=== PATIENT | female | born 1975 | race Two or more races ===

== ENCOUNTER 2024-06-07 19:18 | Emergency (ER) | payer MEDICAID, SELFPAY ==
[2024-06-07 20:20] VITALS: BP 151/86; PULSE 56; RESP 18; TEMP 36.8; O2SAT 99; BMI 29.5
[2024-06-07 20:31] VITALS: PULSE 62
--- NOTE | 2024-06-07 20:48 | XR_ITS ---
Examination: PA chest single view Technique: Upright PA chest single view Exam date and time: June 07, 2024 2101 hrs. Indications: Onset chest pain today. Findings: Early pneumonia right base Normal heart size No pulmonary edema Intact osseous structures Impression: Early pneumonia right base
--- NOTE | 2024-06-07 20:49 | EDRME_ITS ---
Rapid Medical Screening Exam [facility] Arrival date/time: 06/07/24 19:18 48F with no significant PMH presents to ED with epigastric pain that radiates up to chest/throat, as well as some N/V. Chief Complaint: Abdominal Pain Vital signs: Vital Signs Temperature 98.2 F 06/07/24 20:20 Pulse Rate 56 L 06/07/24 20:20 Respiratory Rate 18 06/07/24 20:20 Blood Pressure 151/86 H 06/07/24 20:20 Pulse Oximetry (%) 99 06/07/24 20:20 Oxygen Delivery Method Room Air 06/07/24 20:20
[2024-06-07] MEDS: MG HYD/AL HYD/SIME (Maalox Reg) SUSP 30 ML UDC PO (21:13)
[2024-06-07] MEDS: FAMOTIDINE 20 MG TABLET 40 MG PO (21:13)
[2024-06-07 21:43] LABS: Basophils % (Auto) 0 % (0-2.5); Eosinophils # (Auto) 0.1 Thou/mm3 (0.0-0.5); Eosinophils % (Auto) 1 % (0-10); Hematocrit 33.9 % (36.0-46.0); Hemoglobin 10.5 g/dL (12.0-16.0); Immature Granulocytes % (Auto) 0 % (0-0); Immature Granulocytes Auto 0.04 Thou/mm3 (0.00-0.00); Lymphocytes # (Auto) 1.7 Thou/mm3 (1.0-4.8); Lymphocytes % (Auto) 14 % (10-50); Mean Corpuscular Hemoglobin 24.2 pg (25.0-35.0); Mean Corpuscular Volume 78 fL (80-100); Monocytes # (Auto) 0.8 Thou/mm3 (0.0-0.8); Monocytes % (Auto) 6 % (0-12); Neutrophils # (Auto) 9.4 Thou/mm3 (1.8-7.7); Neutrophils % (Auto) 78 % (37-80); Nucleated Red Blood Cell % 0 /100 WBC (0); Platelet Count 296 Thou/mm3 (140-440); RDW Standard Deviation 50.1 fL (36.4-46.3); Red Blood Count 4.33 Miln/mm3 (4.00-5.20); White Blood Count 12.1 Thou/mm3 (3.6-11.0)
[2024-06-07 22:03] LABS: Alanine Aminotransferase 168 U/L (10-49); Albumin, Serum 4.8 gm/dL (3.5-5.0); Albumin/Globulin Ratio 1.3 (1.2-2.2); Alkaline Phosphatase 173 U/L (46-116); Anion Gap 5 (7-16); Aspartate Amino Transferase 246 U/L (0-34); BUN/Creatinine Ratio 15 Ratio (12-20); Bilirubin,Total 0.9 mg/dL (0.3-1.2); Blood Urea Nitrogen 18 mg/dL (9-23); Calcium 9.9 mg/dL (8.3-10.6); Calcium (Corrected) 9.9 mg/dL (8.5-10.1); Carbon Dioxide 26.2 mMol/L (20.0-31.0); Chloride 104 mMol/L (98-107); Creatinine (Component) 1.2 mg/dL (0.6-1.3); Globulin 3.6 gm/dL (2.3-3.5); Glucose 99 mg/dL (74-106); Lipase 47 U/L (12-53); Osmolality,Calculated 272 (275-295); Potassium 4.6 mMol/L (3.4-5.1); Sodium 135 mMol/L (136-145); Total Protein 8.4 gm/dL (5.7-8.2); Troponin I < 0.020 ng/mL (0.0-0.045); eGFR 55 See Note
--- NOTE | 2024-06-07 22:10 | XR_ITS ---
Examination: Abdomen sonogram, Limited Date and time of exam: June 07, 2024 1035 hrs. Indications: Upper abdominal pain beginning 3 hours ago Technique: Real-time ma scale transabdominal sonographic images of the upper abdomen obtained. Findings: Multiple gallstones Gallbladder sludge Gallbladder wall 0.2 cm Common bile duct 0.6 cm Pancreatic head 3.1 cm Liver 14.4 cm no liver lesions Normal hepatopedal portal venous flow Patent IVC Impression: Cholelithiasis, negative for cholecystitis No common bile duct stones noted
[2024-06-07 23:17] VITALS: BP 122/99; PULSE 65; RESP 16; TEMP 36.8; O2SAT 97
--- NOTE | 2024-06-08 00:07 | PD.EDABDPN ---
ED Abdominal Pain RME/HPI General Chief Complaint: Abdominal Pain Stated complaint: UPPER ABD PAIN Arrival date/time: 06/07/24 19:18 Limitations: no limitations RME / HPI RME / HPI narrative: 06/07/24 19:18 48F with no significant PMH presents to ED with epigastric pain that radiates up to chest/throat, as well as some N/V. ---- Dr. Gooden's Main ED Evaluation: 48yo female with no significant past medical history presents to the ED for a chief complaint of aching epigastric pain x 1800. Patient states she last ate at 1630, reporting she developed epigastris pain at 1800. She denies any N/V, fever, chills or any other associated symptoms. Denies any history of similar symptoms. No known allergies. Related Data Allergies Allergy/AdvReac Type Severity Reaction Status Date / Time No Known Allergies Allergy Verified 06/07/24 19:21 Review of Systems Review of Systems Systems Reviewed: All systems reviewed, normal except as documented Past Medical History Past Medical History CARDIAC: Negative Congestive Heart Failure RESPIRATORY: Negative Chronic Obstructive Pulmonary Disease (COPD) GENITOURINARY: Negative Renal Disease ENDOCRINE: Negative Diabetes Mellitus Type 1 or Diabetes Mellitus Type 2 Social History SMOKING STATUS: Never smoker ED Exam General Limitations: Present no limitations General appearance: Present alert and in no apparent distress Head Head exam: Present atraumatic Eye Eye exam: Present normal appearance, PERRL and EOMI ENT ENT exam: Present normal exam, normal oropharynx and mucous membranes moist Neck Neck exam: Present normal inspection, full ROM and trachea midline Chest Chest inspection: Present normal inspection and symmetric chest wall rise Respiratory Respiratory exam: Present normal lung sounds bilaterally Cardiovascular Cardiovascular exam: Present regular rate, normal rhythm and normal heart sounds Abdominal Exam Abdominal exam: Present soft and normal bowel sounds; Absent tenderness or Canada's sign Extremities Exam Extremities exam: Present normal inspection and full ROM Back Exam Back exam: Present normal inspection and full ROM Neurological Exam Neurological exam: Present alert, oriented X3 and CN II-XII intact Psychiatric Psychiatric exam: Present normal affect and normal mood Skin Skin exam: Present warm, dry, intact and normal color Course Course Course Narrative: Patient has remained clinically stable within the ED. Discussed with the patient at bedside, and she feels comfortable going home. Return precautions given. Quality Measures none Orders Category Date Time Status EKG (ED ONLY) *Do not use* NOW Care 06/07/24 20:49 Completed EKG (ED Only) Stat Exams 06/07/24 20:48 Ordered US gall bladder Stat Exams 06/07/24 22:10 Completed XR chest 1V portable Stat Exams 06/07/24 20:48 Completed CBC Stat Lab 06/07/24 20:55 Completed CMP [Comprehensive Metabolic Panel] Stat Lab 06/07/24 20:55 Completed Lipase Stat Lab 06/07/24 20:55 Completed Troponin I Stat Lab 06/07/24 20:55 Completed Famotidine [Pepcid] Med 06/07/24 20:48 Discontinued 40 mg PO X1 ONE mg Hyd/Al Hyd/Sofia Susp [Maalox Susp] Med 06/07/24 20:48 Discontinued 30 ml PO X1 ONE Vital Signs Vital signs: Vital Signs Temperature 98.2 F 06/07/24 20:20 Pulse Rate 56 L 06/07/24 20:20 Respiratory Rate 18 06/07/24 20:20 Blood Pressure 151/86 H 06/07/24 20:20 Pulse Oximetry (%) 99 06/07/24 20:20 Oxygen Delivery Method Room Air 06/07/24 20:20 Pulse ox is 99% on room air, which is normal according to my interpretation. Abdominal Pain MDM Patient data External records reviewed:: [facility] previous records (Per chart review, patient has no previous ED visits or admissions to this facility.) Clinical information provided by:: patient Social determinants that could affect healthcare access:: none Patient has the following chronic illnesses:: none How is presenting disease/condition affected by chronic disease/condition?: no chronic disease Evaluation data The following diagnostics were reviewed and interpreted by me:: lab results and radiology exam(s) Lab and/or radiology exams considered but not ordered:: none Interpretation Summary: WBC count is elevated at 12.1, LFTs are elevated, total bilirubin is normal, according to my interpretation. ---- I have personally reviewed the radiology data and agree with the radiologist's interpretation below: [facility] Report Signed Patient: ALYSE MEDINA. Record#: [id number] Birthdate: 1975 Age/Sex: 48 / F Location: [facility] Attending Dr: Ordering Physician: Boubacar Ruiz PA-C Date of Service: 06/07/24 Procedure(s): US gall bladder Accession Number(s): [id number] cc: Wil Mann MD; NO PRIMARY/FAMILY,PHYSICIAN; Boubacar Ruiz PA-C~ Examination: Abdomen sonogram, Limited Date and time of exam: June 07, 2024 1035 hrs. Indications: Upper abdominal pain beginning 3 hours ago Technique: Real-time ma scale transabdominal sonographic images of the upper abdomen obtained. Findings: Multiple gallstones Gallbladder sludge Gallbladder wall 0.2 cm Common bile duct 0.6 cm Pancreatic head 3.1 cm Liver 14.4 cm no liver lesions Normal hepatopedal portal venous flow Patent IVC Impression: Cholelithiasis, negative for cholecystitis No common bile duct stones noted Dictated By: Wil Mann MD Signed By: <Electronically signed by Wil Mann MD in [place]> 06/07/24 2311 -------- [facility] Report Signed Patient: ALYSE MEDINA Record#: [id number] Birthdate: 1975 Age/Sex: 48 / F Location: [facility] Attending Dr: Ordering Physician: Boubacar Ruiz PA-C Date of Service: 06/07/24 Procedure(s): XR chest 1V portable Accession Number(s): [id number] cc: Wil Mann MD; NO PRIMARY/FAMILY,PHYSICIAN; Boubacar Ruiz PA-C~ Examination: PA chest single view Technique: Upright PA chest single view Exam date and time: June 07, 2024 2101 hrs. Indications: Onset chest pain today. Findings: Early pneumonia right base Normal heart size No pulmonary edema Intact osseous structures Impression: Early pneumonia right base Dictated By: Wil Mann MD Signed By: <Electronically signed by Wil Mann MD in [place]> 06/07/247 ---- CXR is negative for any cardiomegaly, pleural effusions, or CHF, according to my interpretation. Medications / Prescriptions Medications or Prescriptions considered but not ordered:: none Medication administrations:: Medication Administration History Discontinued Medications Al Hydrox/Mg Hydrox/Simethicone (Mg Hyd/Al Hyd/Sofia (Maalox Reg) Susp 30 Ml Udc) 30 ml PO X1 ONE Stop: 06/07/24 20:49 Last Admin: 06/07/24 21:13 Dose: 30 ml Documented By: Famotidine (Famotidine 20 Mg Tablet) 40 mg PO X1 ONE Stop: 06/07/24 20:49 Last Admin: 06/07/24 21:13 Dose: 40 mg Documented By: see above Consultations Consultation(s) initiated? (list below): No Diagnosis Differential diagnosis abdominal pain: other (gallstone pancreatitis, acute cholecystitis, cholelithiasis, pneumonia, atypical CAD) Most likely diagnosis given after review of the tests above:: see below Admission Indicated Admission indicated?: not indicated Admission Request Was there a request for admission?: No Disposition Plan Disposition Plan: Discharge Discharge Attestation Discharge Attestation: The patient and all family members were given an opportunity to ask questions and understood the discharge instructions. Discharge instructions specifically effects, indications for sooner follow up or return to the emergency department, and the expected course of current diagnosis. Patient condition: Stable Discharge Plan Plan Patient Disposition: HOME (Self Care) Prescriptions/Referrals Referrals: Jaclyn Anaya MD [Physician] - In 1 week (Call tomorrow so that you can get an appointment next week.) No Primary/Family,Physician [Primary Care Provider] - In 1 week Problem List Clinical Impression: Gallstones Patient/Caregiver Discharge Instructions Education Materials: Treating Gallstones Additional Instructions: Please call the surgeon so that you can get a follow-up appointment for your gall stones. You will follow-up with your primary care physician next week for repeat laboratory findings. If you are eating greasy, fatty or foods that are very heavy you will likely have additional pain. Return sooner than your appointment if you are having fever, vomiting worsening pain, or any other concerns Print Language: [place] Stand Alone Forms: [facility]anna Award Info., Patient Portal Info Letter
[2024-06-08 00:16] VITALS: PULSE 69; RESP 16; O2SAT 98
== END 2024-06-08 00:17 | disposition home or self-care (01) ==
PROVIDERS: Physician Assistant; Emergency Provider Emergency Medicine
DX: K80.20 Calculus of gallbladder without cholecystitis without obstruction (principal); J18.9 Pneumonia, unspecified organism
CPT/HCPCS: 36415; 71045; 76705; 80053; 83690; 84484; 85025; 93005; 99284; A9270